=== PATIENT | male | born 1995 | race Caucasian/White ===

== ENCOUNTER 2016-04-18 11:55 | Emergency (ER) | payer OTHER ==
[2016-04-18 12:03] VITALS: RESP 16; TEMP 98.2
[2016-04-18] MEDS ORDERED: HYDROmorphONE/DILAUDID 1 MG/ML SYR IM ONE (13:05)
--- NOTE | 2016-04-18 13:09 | US ---
Testicular Sonogram Clinical Indications: Right testicular pain. Technique: Scrotal contents were imaged with the high-resolution transducer. Color and pulsed Doppl er/duplex were recorded on each side. Findings: Right testis measures 4 x 2.8 x 1.9 cm and left testis measures 3.7 x 2.6 x 1.[address] stes are homogeneous in echogenicity without intratesticular masses. Duplex/Doppler signals are erika l, without evidence of torsion or inflammation. No epididymal enlargement. No hydrocele or varicocel e. Impression: Normal ultrasound testes. Findings and recommendations discussed with Emergency Department physician, Dr. Galarza at 1300 hours today. Final report concurs with initial preliminary interpretation.
[2016-04-18] MEDS ORDERED: NS 1,000 ML IV ONE (13:29)
[2016-04-18] MEDS ORDERED: ONDANSETRON 4 MG/2 ML VIAL IVP ONE ×2 (13:29→13:31)
[2016-04-18 13:37] LABS: % IMMATURE GRANULYOCYTES 0.4 % (0.0-1.1); ABSOLUTE IMMATURE GRANULOCYTES 0.02 10^3/uL (0.00-0.10); ADD DIFF? NO; ADD MORPH? NO; ADD SCAN? NO; ATYPICAL LYMPHOCYTE FLAG 30 (0-99); FRAGMENT RBC FLAG 0 (0-99); HEMATOCRIT 47.8 % (40.0-51.0); LEFT SHIFT FLG 0 (0-99); LIPEMIA HEMOLYSIS FLAG 90 (0-99); MEAN CELL HEMOGLOBIN 29.9 pg (27.9-34.1); MEAN CELL HEMOGLOBIN CONCENTR. 35.6 g/dL (32.4-36.7); MEAN CELL VOLUME 84.2 fL (81.5-99.8); MEAN PLATELET VOLUME 9.2 fL (8.7-11.7); PLATELET CLUMPS FLAG 20 (0-99); PLATELET COUNT 258 10^3/uL (150-400); RED BLOOD CELL COUNT 5.68 10^6/uL (4.40-6.38)
[2016-04-18] MEDS ORDERED: HYDROmorphONE/DILAUDID 1 MG/ML SYR IVP ONE (13:39)
[2016-04-18 13:46] LABS: ALANINE AMINOTRANSFERASE 28 IU/L (21-72); ALBUMIN 4.5 g/dL (3.5-5.0); ALKALINE PHOSPHATASE 82 IU/L (38-126); ANION GAP 22 mEq/L (8-16); ASPARTATE AMINOTRANSFERASE 32 IU/L (17-59); BILIRUBIN-CONJUGATED 0.3 mg/dL (0.0-0.5); BILIRUBIN-UNCONJUGATED 0.7 mg/dL (0.0-1.1); CALCIUM 9.7 mg/dL (8.5-10.4); CARBON DIOXIDE 16 mEq/l (22-31); CHLORIDE 104 mEq/L (97-110); GLOMERULAR FILTRATION RATE > 60; GLUCOSE 130 mg/dL (70-100); POTASSIUM 3.7 mEq/L (3.5-5.2); SODIUM 142 mEq/L (134-144); TOTAL PROTEIN 7.6 g/dL (6.3-8.2)
--- NOTE | 2016-04-18 13:48 | EDPHY ---
H & P Stated Complaint: right test pain, rad to abd, nausea HPI/ROS: CHIEF COMPLAINT: Testicular pain, abdominal pain HISTORY OF PRESENT ILLNESS: sudden onset of right lower quadrant and right testicular pain Late last night. Primarily in the testicle radiates up into the abdomen and flank. Nausea and vomiting. No hematemesis. No diarrhea. No trauma. No discharge from the penis. No urinary complaints. Feels that the pain is radiating upward into the right flank but has no direct right flank pain. No position of comfort. Worse with any kind of palpation and movement.No history of kidney stones. Recently tested for sexually transmitted infections and was reportedly negative. No other associated complaints or modifying factors. REVIEW OF SYSTEMS: Ten systems reviewed and are negative unless otherwise noted in the HPI EXAMINATION General Appearance: Alert, no distress Head: normocephalic, atraumatic Eyes: Pupils equal and round, no conjunctival pallor or injection ENT, Mouth: Mucous membranes moist Neck: Normal inspection, supple, non-tender Respiratory: Lungs are clear to auscultation Cardiovascular: Regular rate and rhythm Gastrointestinal: Abdomen is Soft, tenderness to the right lower quadrant that is mild. No rigidity. No tympany. Nonacute abdomen. Mild right CVA tenderness Neurological: A&O, nonfocal Skin: Warm and dry, no rash Extremities: Nontender, no pedal edema Psychiatric: Mood and affect normal DIFFERENTIAL DIAGNOSES: 1. testicular torsion 2. epididymitis 3. ureteral stone 4. abdominal pain MDM: 13:30 right testicular and abdominal pain that is likely stone in etiology. The patient had an ultrasound ordered at time of arrival and was read as unremarkable prior to my examination. The testicular pain does radiate up into the abdomen and flank, thus we will obtain CT scan to rule out stone. Labs are pending at this time. He is feeling better in the emergency department with IV pain medication and IV Zofran. He is awake and alert and in no acute distress. 14:30 I have re-evaluated the patient. He is feeling significantly better following the treatment here in the emergency department. Radiology notified me of a 3 mm calculus in the right proximal ureter with very mild hydronephrosis. Small, punctate stones otherwise. No stranding. No other intra-abdominal pathology. No elevated creatinine. No leukocytosis. No fever. He is tolerating intake by mouth without complication. Plan for discharge home with pain medication, nausea medication and follow up with primary care physician. Patient is comfortable this plan. We did discuss ED precautions for worsening pain, nausea, vomiting and he is comfortable this plan. SUPERVISION: This patient was independently evaluated without the aide of supervising physician. - Personal History Current Tetanus/Diphtheria Vaccine: Unsure Current Tetanus Diphtheria and Acellular Pertussis (TDAP): Unsure - Medical/Surgical History Hx Asthma: No Hx Chronic Respiratory Disease: No Hx Diabetes: No Hx Cardiac Disease: No Hx Renal Disease: No Hx Cirrhosis: No Hx Alcoholism: No Hx HIV/AIDS: No Hx Splenectomy or Spleen Trauma: No Other PMH: PMH:kidney stone. PSH:dental - Social History Smoking Status: Never smoked Constitutional: Initial Vital Signs Temperature (C) 98.2 F 04/18/16 12:01 Heart Rate 105 H 04/18/16 12:01 Respiratory Rate 16 04/18/16 12:01 Blood Pressure 119/73 04/18/16 12:01 O2 Sat (%) 100 04/18/16 12:01 O2 Delivery Mode Room Air Allergies/Adverse Reactions: acetaminophen [From Tylenol] Allergy (Verified 04/18/16 12:03) Home Medications: Medication Instructions Recorded Ondansetron Odt [Zofran Odt 4 mg 4 mg PO Q4 PRN #12 tab 04/18/16 (*)] Tamsulosin HCl [Flomax] 0.4 mg PO DAILY #10 cap 04/18/16 oxyCODONE/APAP 5/325 [Percocet 1 - 2 tab PO Q4H PRN #20 tab 04/18/16 5/325] Medical Decision Making - Data Points Laboratory Results: Laboratory Results 04/18/16 12:21 04/18/16 12:21 04/18/16 04/18/16 14:29 12:21 WBC 5.45 10^3/uL (3.80-9.50) RBC 5.68 10^6/uL (4.40-6.38) Hgb 17.0 g/dL (13.7-17.5) Hct 47.8 % (40.0-51.0) MCV 84.2 fL (81.5-99.8) MCH 29.9 pg (27.9-34.1) MCHC 35.6 g/dL (32.4-36.7) RDW 12.0 % (11.5-15.2) Plt Count 258 10^3/uL (150-400) MPV 9.2 fL (8.7-11.7) Neut % (Auto) 47.5 % (39.3-74.2) Lymph % (Auto) 41.8 % (15.0-45.0) [place] % (Auto) 7.9 % (4.5-13.0) Eos % (Auto) 1.7 % (0.6-7.6) Baso % (Auto) 0.7 % (0.3-1.7) Nucleat RBC Rel Count 0.0 % (0.0-0.2) Absolute Neuts (auto) 2.59 10^3/uL (1.70-6.50) Absolute Lymphs (auto) 2.28 10^3/uL (1.00-3.00) Absolute Monos (auto) 0.43 10^3/uL (0.30-0.80) Absolute Eos (auto) 0.09 10^3/uL (0.03-0.40) Absolute Basos (auto) 0.04 10^3/uL (0.02-0.10) Absolute Nucleated RBC 0.00 10^3/uL (0-0.01) Immature Gran % 0.4 % (0.0-1.1) Immature Gran # 0.02 10^3/uL (0.00-0.10) VBG Lactic Acid 3.5 H mmol/L (0.7-2.1) Sodium 142 mEq/L (134-144) Potassium 3.7 mEq/L (3.5-5.2) Chloride 104 mEq/L (97-110) Carbon Dioxide 16 L mEq/l (22-31) Anion Gap 22 mEq/L (8-16) BUN 10 mg/dL (7-23) Creatinine 1.0 mg/dL (0.7-1.3) Estimated GFR > 60 Glucose 130 H mg/dL (70-100) Calcium 9.7 mg/dL (8.5-10.4) Total Bilirubin 1.0 mg/dL (0.1-1.4) Conjugated Bilirubin 0.3 mg/dL (0.0-0.5) Unconjugated Bilirubin 0.7 mg/dL (0.0-1.1) AST 32 IU/L (17-59) ALT 28 IU/L (21-72) Alkaline Phosphatase 82 IU/L (38-126) Total Protein 7.6 g/dL (6.3-8.2) Albumin 4.5 g/dL (3.5-5.0) Lipase 56.0 IU/L (23-300) Medications Given: Discontinued Medications Hydromorphone HCl (Dilaudid) 1 mg IM EDNOW ONE Stop: 04/18/16 13:06 Last Admin: 04/18/16 13:28 Dose: 0.5 mg Hydromorphone HCl (Dilaudid) 0.5 mg IVP EDNOW ONE Stop: 04/18/16 13:40 Last Admin: 04/18/16 13:57 Dose: 0.5 mg Sodium Chloride (Ns) 1,000 mls @ 0 mls/hr IV ONCE ONE PRN Reason: Wide Open Stop: 04/18/16 13:30 Last Admin: 04/18/16 13:33 Dose: 1,000 mls Ondansetron HCl (Zofran) 4 mg IVP EDNOW ONE Stop: 04/18/16 13:30 Last Admin: 04/18/16 13:33 Dose: 4 mg Departure - Departure Disposition: Home, Routine, Self-Care Clinical Impression: Testicular pain, Ureteral stone with hydronephrosis Nausea & vomiting Qualifiers: Vomiting type: unspecified Vomiting Intractability: non-intractable Qualifier Code: (R11.2) Nausea with vomiting, unspecified Condition: Good Instructions: Ureteral Stones (ED), Renal Colic (ED) Additional Instructions: Follow-up with primary care physician and Urology. Return to the emergency department for any worsening pain, flank pain, difficulty urinating, fever, vomiting. Referrals: NONE *PRIMARY CARE P,. [Primary Care Provider] - As per Instructions Prescriptions: Tamsulosin HCl [Flomax] 0.4 mg PO DAILY #10 cap oxyCODONE/APAP 5/325 [Percocet 5/325] 1 - 2 tab PO Q4H PRN #20 tab PRN Reason: Pain, Severe Ondansetron Odt [Zofran Odt 4 mg (*)] 4 mg PO Q4 PRN #12 tab PRN Reason: Nausea/Vomiting, Use 1st
[2016-04-18] MEDS ORDERED: KETOROLAC 30 MG/1 ML SDV IVP ONE (14:35)
[2016-04-18] MEDS ORDERED: NS 500 ML IV ONE (14:38)
--- NOTE | 2016-04-18 14:41 | CT ---
CT Abdomen and Pelvis (Without Contrast) 1352 Hours History: Right flank pain and abdominal pain. Technique: Spiral images were acquired from the upper abdomen through the pelvis without intravenous or oral contrast which limits the study. Dose reduction techniques were utilized. Findings Abdomen: Mild right hydroureteronephrosis secondary to a 3 mm obstructing calculus in the proximal ri ght ureter at the L3-L4 disk space level, image 158 of series 3. Two additional 1 to 2 mm nonobstruct ing lower pole calyceal calculi in the right kidney. No evidence of left nephrolithiasis or left hydr onephrosis. No hepatosplenomegaly or ascites. No bowel obstruction. No aortic aneurysm or significant adenopathy. Lung bases are clear. Pelvis: No additional bladder calculi. No evidence of appendicitis. Impressions 1. Mild right hydroureteronephrosis secondary to a 3 mm proximal right ureteral calculus. Two additio nal nonobstructing calyceal calculi in the right kidney. 2. No left nephrolithiasis or left hydronephrosis. 3. No bowel obstruction. Attention: This CT examination is specifically designed to evaluate patients who are clinically susp ected of having acute obstructive uropathy. This examination does not use radiographic contrast, and as such, provides only a limited evaluation of the abdomen, pelvis and retroperitoneum. If there is further clinical suspicion for pathologic conditions other than obstructive uropathy, a complete CT evaluation of the abdomen and pelvis utilizing intravenous, oral, and rectal contrast should be consi dered. Findings and recommendations discussed with Emergency Department physician's electrician assistant, Thomas Lamb PA-C at 1430 hours today. April 18, 2016. Final report concurs with initial preliminary interpretation.
[2016-04-18 15:25] LABS: COLOR YELLOW; LEUKOCYTE ESTERASE,URINE NEGATIVE (NEGATIVE); NITRITE,URINE NEGATIVE (NEGATIVE)
[2016-04-18 15:29] LABS: BACTERIA TRACE /hpf (NONE SEEN); MUCUS 4+ /lpf (NONE-1+); RBC,URINE 50-182 /hpf (0-3)
[2016-04-18] MEDS ORDERED: OXYCODONE/APAP 5/325 TAB PO ONE (15:32)
[2016-04-18 16:30] VITALS: BP 133/70; PULSE 102; O2SAT 97
[2016-04-20 08:24] LABS: CHLAMYDIA AMPLIFICATION GENPRB NEGATIVE (NEGATIVE)
== END 2016-04-18 16:30 | disposition home or self-care (01) ==
DX: N20.1 Calculus of ureter (principal); N13.30 Unspecified hydronephrosis
CPT/HCPCS: 96374; J1170; J1885; J2405

== ENCOUNTER 2016-04-25 17:08 | Emergency (ER) | payer OTHER ==
[2016-04-25] MEDS ORDERED: ONDANSETRON 4 MG/2 ML VIAL IVP ONE (18:10)
[2016-04-25] MEDS ORDERED: fentaNYL 100 MCG/2 ML INJ IVP ONE (18:10)
[2016-04-25 18:30] LABS: % IMMATURE GRANULYOCYTES 0.3 % (0.0-1.1); ABSOLUTE IMMATURE GRANULOCYTES 0.03 10^3/uL (0.00-0.10); ADD DIFF? NO; ADD MORPH? NO; ADD SCAN? NO; ATYPICAL LYMPHOCYTE FLAG 0 (0-99); FRAGMENT RBC FLAG 0 (0-99); HEMATOCRIT 46.1 % (40.0-51.0); HEMOGLOBIN 16.1 g/dL (13.7-17.5); LEFT SHIFT FLG 10 (0-99); LIPEMIA HEMOLYSIS FLAG 90 (0-99); MEAN CELL HEMOGLOBIN 29.8 pg (27.9-34.1); MEAN CELL HEMOGLOBIN CONCENTR. 34.9 g/dL (32.4-36.7); MEAN CELL VOLUME 85.4 fL (81.5-99.8); MEAN PLATELET VOLUME 8.9 fL (8.7-11.7); PLATELET CLUMPS FLAG 0 (0-99); PLATELET COUNT 204 10^3/uL (150-400); RED CELL DISTRIBUTION WIDTH 11.8 % (11.5-15.2)
--- NOTE | 2016-04-25 18:31 | EDPHY ---
H & P Stated Complaint: r flank/rlq abd pain hx kidney stones Time Seen by Provider: 04/25/16 18:10 HPI/ROS: CHIEF COMPLAINT: Recurrent right flank and abdominal pain HISTORY OF PRESENT ILLNESS: The patient presents to the ED for with complaints of recurrent right flank and abdominal pain. The patient was seen in the ED 1 week ago and diagnosed with right ureterolithiasis. The patient has not been straining his urine but did take Flomax for 5 days. He thought he passed the stone but developed recurrent symptoms today. Today he developed moderate to severe pain he rated as an 8/10. He had 1 episode of vomiting as he was driving to the emergency department. The patient currently rates his pain as a 3/10. It is primarily in the right lower quadrant right flank. The patient denies prior history of abdominal surgery. He denies additional acute medical complaints. REVIEW OF SYSTEMS: A comprehensive 10 point review of systems is otherwise negative aside from elements mentioned in the history of present illness. Source: Patient Exam Limitations: No limitations - Personal History Current Tetanus/Diphtheria Vaccine: Yes - Medical/Surgical History Hx Asthma: No Hx Chronic Respiratory Disease: No Hx Diabetes: No Hx Cardiac Disease: No Hx Renal Disease: No Hx Cirrhosis: No Hx Alcoholism: No Hx HIV/AIDS: No Hx Splenectomy or Spleen Trauma: No Other PMH: PMH:kidney stone. PSH:dental - Social History Smoking Status: Never smoked - Physical Exam Exam: General Appearance: Alert, no distress Eyes: Pupils equal and round no pallor or injection ENT, Mouth: Mucous membranes moist Respiratory: There are no retractions, lungs are clear to auscultation Cardiovascular: Regular rate and rhythm Gastrointestinal: Minimal tenderness to palpation in the right mid quadrant Back: Mild right CVA tenderness Neurological: A&O, normal motor function, normal sensory exam, normal cranial nerves Skin: Warm and dry, no rashes Musculoskeletal: Neck is supple nontender Extremities: symmetrical, full range of motion Constitutional: Initial Vital Signs Temperature (C) 36.7 C 04/25/16 17:11 Heart Rate 92 04/25/16 17:11 Respiratory Rate 18 04/25/16 17:11 Blood Pressure 109/84 H 04/25/16 17:11 O2 Sat (%) 99 04/25/16 17:11 O2 Delivery Mode Room Air Allergies/Adverse Reactions: acetaminophen [From Tylenol] Allergy (Verified 04/25/16 17:11) Home Medications: Medication Instructions Recorded Ondansetron Odt [Zofran Odt 4 mg 4 mg PO Q4 PRN #12 tab 04/18/16 (*)] Tamsulosin HCl [Flomax] 0.4 mg PO DAILY #10 cap 04/18/16 oxyCODONE/APAP 5/325 [Percocet 1 - 2 tab PO Q4H PRN #20 tab 04/18/16 5/325] Ondansetron Odt [Zofran Odt] 4 mg PO Q4PRN PRN #20 tab 04/25/16 Tamsulosin HCl [Flomax] 0.4 mg PO DAILY PRN #5 cap 04/25/16 oxyCODONE/APAP 5/325 [Percocet 1 - 2 tab PO Q6-8PRN PRN #20 tab 04/25/16 5/325 (RX)] Medical Decision Making - Diagnostics Imaging: Prior abdominal CT Abdomen and Pelvis (Without Contrast) History: Right flank pain and abdominal pain. Technique: Spiral images were acquired from the upper abdomen through the pelvis without intravenous or oral contrast which limits the study. Dose reduction techniques were utilized. Findings Abdomen: Mild right hydroureteronephrosis secondary to a 3 mm obstructing calculus in the proximal right ureter at the L3-L4 disk space level, image 158 of series 3. Two additional 1 to 2 mm nonobstructing lower pole calyceal calculi in the right kidney. No evidence of left nephrolithiasis or left hydronephrosis. No hepatosplenomegaly or ascites. No bowel obstruction. No aortic aneurysm or significant adenopathy. Lung bases are clear. Pelvis: No additional bladder calculi. No evidence of appendicitis. Impressions 1. Mild right hydroureteronephrosis secondary to a 3 mm proximal right ureteral calculus. Two additional nonobstructing calyceal calculi in the right kidney. 2. No left nephrolithiasis or left hydronephrosis. 3. No bowel obstruction. Two Supine Views of the Abdomen History: Reevaluate kidney stones. Comparison: CT April 18, 2016 Findings: Tiny 2 mm upper and lower pole nonobstructive right renal stones are present. A previous 3 mm proximal right ureteral stone at the level of the L3-4 disc space is likely now at the right ureterovesical junction. 3 left pelvic phleboliths are in stable position. No left renal or ureteral stones are seen. Impression: The right ureteral stone has coursed to the ureterovesical junction.. Dictated By: Micah Farooq MD ED Course/Re-evaluation: I reviewed the patient's past medical records. He did have a 3 mm proximal right ureteral stone noted during that evaluation. The patient was discharged home with a prescription for narcotic pain medications and Toradol. Additionally, he had 2 additional renal calculi noted on his CT scan today. The patient is well-appearing. The patient presents to the ED with symptoms of ongoing renal colic. The patient does have some migration of his stone into his distal ureter. The patient did have an IV established. He received serial examination is well- appearing. I have stressed to the patient the importance of continuing Flomax and straining his urine. The patient has been discharged home with customary aftercare instructions and return precautions. The patient will follow up with Urology for any unimproved symptoms. The patient was reexamined at 7:45 p.m. and is in no acute distress. He is comfortable being discharged home and continue conservative management. He has been given instructions to return to the ED for fever, intractable pain, vomiting or other concerns. Differential Diagnosis: Differential diagnosis considered includes ureterolithiasis, pyelonephritis, obstructive uropathy, renal failure - Data Points Laboratory Results: Laboratory Results 04/25/16 18:19 04/25/16 18:19 04/25/16 04/25/16 18:19 18:15 WBC 10.38 H 10^3/uL (3.80-9.50) RBC 5.40 10^6/uL (4.40-6.38) Hgb 16.1 g/dL (13.7-17.5) Hct 46.1 % (40.0-51.0) MCV 85.4 fL (81.5-99.8) MCH 29.8 pg (27.9-34.1) MCHC 34.9 g/dL (32.4-36.7) RDW 11.8 % (11.5-15.2) Plt Count 204 10^3/uL (150-400) MPV 8.9 fL (8.7-11.7) Neut % (Auto) 87.9 H % (39.3-74.2) Lymph % (Auto) 5.9 L % (15.0-45.0) [place] % (Auto) 5.6 % (4.5-13.0) Eos % (Auto) 0.1 L % (0.6-7.6) Baso % (Auto) 0.2 L % (0.3-1.7) Nucleat RBC Rel Count 0.0 % (0.0-0.2) Absolute Neuts (auto) 9.13 H 10^3/uL (1.70-6.50) Absolute Lymphs (auto) 0.61 L 10^3/uL (1.00-3.00) Absolute Monos (auto) 0.58 10^3/uL (0.30-0.80) Absolute Eos (auto) 0.01 L 10^3/uL (0.03-0.40) Absolute Basos (auto) 0.02 10^3/uL (0.02-0.10) Absolute Nucleated RBC 0.00 10^3/uL (0-0.01) Immature Gran % 0.3 % (0.0-1.1) Immature Gran # 0.03 10^3/uL (0.00-0.10) Sodium 137 mEq/L (134-144) Potassium 3.8 mEq/L (3.5-5.2) Chloride 100 mEq/L (97-110) Carbon Dioxide 22 mEq/l (22-31) Anion Gap 15 mEq/L (8-16) BUN 16 mg/dL (7-23) Creatinine 1.1 mg/dL (0.7-1.3) Estimated GFR > 60 Glucose 91 mg/dL (70-100) Calcium 9.8 mg/dL (8.5-10.4) Urine Color YELLOW Urine Appearance CLEAR Urine pH 5.0 (5.0-7.5) Ur Specific [place] 1.020 (1.002-1.030) Urine Protein NEGATIVE (NEGATIVE) Urine Ketones 1+ H (NEGATIVE) Urine Blood 3+ H (NEGATIVE) Urine Nitrate NEGATIVE (NEGATIVE) Urine Bilirubin NEGATIVE (NEGATIVE) Urine Urobilinogen 2.0 H EU (0.2-1.0) Ur Leukocyte Esterase NEGATIVE (NEGATIVE) Urine RBC 25-50 H /hpf (0-3) Urine WBC 1-3 /hpf (0-3) Ur Epithelial Cells TRACE /lpf (NONE-1+) Hyaline Casts 5-15 /lpf (0-1) Urine Mucus 4+ H /lpf (NONE-1+) Ur Culture Indicated? NOT INDICATED (NI) Urine Glucose NEGATIVE (NEGATIVE) Medications Given: Discontinued Medications Fentanyl (Sublimaze) 100 mcg IVP EDNOW ONE Stop: 04/25/16 18:11 Last Admin: 04/25/16 18:14 Dose: Not Given Ketorolac Tromethamine (Toradol) 30 mg IVP EDNOW ONE Stop: 04/25/16 18:52 Last Admin: 04/25/16 18:58 Dose: 30 mg Ondansetron HCl (Zofran) 4 mg IVP EDNOW ONE Stop: 04/25/16 18:11 Last Admin: 04/25/16 18:14 Dose: Not Given Departure - Departure Disposition: Home, Routine, Self-Care Clinical Impression: Calculus of right kidney Condition: Good Instructions: Kidney Stones (ED) Additional Instructions: 1. Take Ibuprofen or Motrin 600 mg by mouth three times a day. 2. Percocet as needed for severe pain 3. Flomax as directed 4. Zofran as needed for nausea 5. Strain urine as directed 6. Return to the Emergency Department for intractable pain, fever or vomiting. 7. Followup with the urologist you have been referred to for unimproved symptoms. Referrals: Dewayne Montes MD [Medical Doctor] - As per Instructions Prescriptions: Tamsulosin HCl [Flomax] 0.4 mg PO DAILY PRN #5 cap PRN Reason: for pain oxyCODONE/APAP 5/325 [Percocet 5/325 (RX)] 1 - 2 tab PO Q6-8PRN PRN #20 tab PRN Reason: for pain Ondansetron Odt [Zofran Odt] 4 mg PO Q4PRN PRN #20 tab PRN Reason: For Nausea
--- NOTE | 2016-04-25 18:47 | DX ---
Two Supine Views of the Abdomen History: Reevaluate kidney stones. Comparison: CT April 18, 2016 Findings: Tiny 2 mm upper and lower pole nonobstructive right renal stones are present. A previous 3 mm proximal right ureteral stone at the level of the L3-4 disc space is likely now at the right urete rovesical junction. 3 left pelvic phleboliths are in stable position. No left renal or ureteral stone s are seen. Impression: The right ureteral stone has coursed to the ureterovesical junction..
[2016-04-25] MEDS ORDERED: KETOROLAC 30 MG/1 ML SDV IVP ONE (18:51)
[2016-04-25 18:53] LABS: ANION GAP 15 mEq/L (8-16); CALCIUM 9.8 mg/dL (8.5-10.4); CARBON DIOXIDE 22 mEq/l (22-31); CHLORIDE 100 mEq/L (97-110); CREATININE 1.1 mg/dL (0.7-1.3); GLOMERULAR FILTRATION RATE > 60; GLUCOSE 91 mg/dL (70-100); POTASSIUM 3.8 mEq/L (3.5-5.2); SODIUM 137 mEq/L (134-144)
[2016-04-25 19:26] LABS: COLOR YELLOW; LEUKOCYTE ESTERASE,URINE NEGATIVE (NEGATIVE); NITRITE,URINE NEGATIVE (NEGATIVE)
[2016-04-25 19:31] LABS: MUCUS 4+ /lpf (NONE-1+); RBC,URINE 25-50 /hpf (0-3)
[2016-04-25 20:04] VITALS: BP 140/73; PULSE 88; RESP 16; TEMP 98.6; O2SAT 97
== END 2016-04-25 20:04 | disposition home or self-care (01) ==
DX: N20.0 Calculus of kidney (principal)
CPT/HCPCS: 96374; J1885